=== PATIENT | female | born 1945 | race Caucasian/White ===

== ENCOUNTER → 2022-10-01 | Outpatient (CLI) | payer MEDICARE ==
[2022-10-01 11:46] LABS: Partial Thromboplastin Time 22.7 sec (22.0-30.0); Prothrombin Time 10.3 sec (9.0-12.0)
[2022-10-01 18:07] LABS: HCT 38.9 % (37.2-46.3); HGB 12.1 g/dL (12.0-15.0); MCH 30.5 pg (27.0-32.0); MCHC 31.1 g/dL (32.0-37.0); Mean Platelet Volume 10.5 fL (9.5-12.2); NRBC Per 100 WBC 0 /100 WBCS (0.0-0.0); Platelet Count 226 X 10*3/uL (140-440); RBC 3.97 X 10*6/uL (4.10-5.20); RDW 12.8 % (11.5-14.5); WBC 6.17 X 10*3/uL (4.50-10.00)
[2022-10-01 18:10] LABS: Appearance,Urine Clear (Clear); Bilirubin,Urine Negative (Negative); Blood,Urine Negative (Negative); Color,Urine Yellow (Yellow); Ketones,Urine Negative (Negative); Nitrite,Urine Negative (Negative); Specific Gravity,Urine 1.009 (1.001-1.030); Urobilinogen,Urine 0.2 (0.2,1.0)
[2022-10-01 18:14] LABS: African American GFR (CKD) 81.3 (60.0-200.0); Albumin 4.6 g/dL (3.8-4.9); Albumin/Globulin Ratio 2.3 (1.60-3.17); Anion Gap 10.3 mmol/L (10.00-18.00); BUN/Creat Ratio 17.5 Ratio (12.00-20.00); Carbon Dioxide 28.7 mmol/L (20.0-27.5); Non-African American GFR(CKD) 70.1 (60.0-200.0); Potassium 4.4 mmol/L (3.5-5.5); Total Bilirubin 0.4 mg/dL (0.30-1.20); Total Protein 6.6 g/dL (6.2-8.2)
[2022-10-01 18:24] LABS: Bacteria,Urine None Seen /HPF (None Seen)
== END | disposition home or self-care (01) ==
LOC: LABPAT 10:10
PROVIDERS: ATTEND Orthopaedic Surgery
DX: Z01.812 Encounter for preprocedural laboratory examination (principal); M16.12 Unilateral primary osteoarthritis, left hip
CPT/HCPCS: 36415; 80053; 81001; 85027; 85610; 85730; 87070

== ENCOUNTER 2022-10-06 13:35 | Day surgery (SDC) | payer MEDICARE ==
[~2022-10-06 13:35] MED LIST: ACETAMINOPHEN TAB 500 MG TAB PO PRN; DEXAMETHASONE SOD PHOSPHATE 4 MG/ML 1 ML VIAL IV ONE; GABAPENTIN 300 MG CAP PO PRN; HYDROmorphone 0.5 MG/0.5 ML SYRINGE IVP PRN; LIDOCAINE 1% (10MG/ML) FOR IV START INTRADERMA PRN; MELOXICAM 7.5 MG TAB PO PRN; MIDAZOLAM 2 MG/2 ML VIAL IV PRN; ONDANSETRON 4 MG/2 ML VIAL IVP ONE; TRANEXAMIC ACID IN NACL,ISO-OS 1,000 MG in SALINE 1 100ML.BAG IVPB PRN
[2022-10-06] MEDS: LACTATED RINGERS 1,000 ML IV SCH (14:07)
[2022-10-06] MEDS ORDERED: MIDAZOLAM 2 MG/2 ML VIAL IVP ONE (14:28)
--- NOTE | 2022-10-06 14:37 | P.ANPRN ---
Procedure Note - Anesthesia - Nerve Block Performed Left Manny Single Time Out Performed: Yes Date of Procedure: 10/06/22 Procedure Start Time: 14:28 Procedure Stop Time: 12:35 Location of Patient: PreOp Indication: Requested by Surgeon Specifically requested for management of pain by DrFabienne: Arnodl Saenz Sedation Type: Sedate with meaningful contact maintained Preparation: Sterile Prep Position: Supine Needle Types: Pajunk Needle Gauge: 21 Ultrasound used to visualize needle placement: Yes Ultrasound used to observe medication spread: Yes Injectate: 0.5% Ropivacaine (see comment for volume) (25 ml +4 mg Dexamethasone) Blood Aspirated: No Pain Paresthesia on Injection Noted: No Resistance on Injection: Normal Image Stored and Saved: Yes Events: Uneventful and Well Tolerated
[2022-10-06] MEDS ORDERED: NALOXONE 0.4 MG/ML 1 ML VIAL IV PRN (15:30)
[2022-10-06] MEDS ORDERED: MAGNESIUM HYDROXIDE 2,400 MG/10 ML CUP PO PRN (15:30)
[2022-10-06] MEDS ORDERED: HYDROmorphone 0.5 MG/0.5 ML SYRINGE IVP PRN ×3 (15:30)
[2022-10-06] MEDS ORDERED: ONDANSETRON 4 MG/2 ML VIAL IVP PRN (15:30)
[2022-10-06] MEDS ORDERED: HYDROcodone/APAP 7.5-325MG 1 EACH TAB PO PRN (15:32)
[2022-10-06] MEDS ORDERED: DEXAMETHASONE SOD PHOSPHATE 4 MG/ML 1 ML VIAL ONE (15:56)
[2022-10-06] MEDS ORDERED: ROPIVACAINE 5 MG/ML 30 ML VIAL ONE (15:56)
[2022-10-06] MEDS ORDERED: TRANEXAMIC ACID IN NACL,ISO-OS 1,000 MG/100 ML BAG ONE (15:56)
[2022-10-06] MEDS ORDERED: MIDAZOLAM 2 MG/2 ML VIAL ONE (15:56)
[2022-10-06] MEDS ORDERED: PHENYLEPHRINE-0.9% NACL SYG 1,000 MCG/10 ML SYRINGE ONE (15:56)
[2022-10-06] MEDS ORDERED: ceFAZolin 1,000 MG in SODIUM CHLORIDE 0.9% 1,000 ML IRRIGATION ONE (15:56)
[2022-10-06] MEDS ORDERED: PROPOFOL 10 MG/ML 20 ML VIAL IV ONE (15:56)
[2022-10-06] MEDS ORDERED: ROPIVACAINE 5 MG/ML 30 ML VIAL MISCELLANE ONE (16:21)
--- NOTE | 2022-10-06 16:59 | P.OP ---
Date of Procedure: 10/06/22 Preoperative Diagnosis: Severe osteoarthritis left hip Postoperative Diagnosis: Severe osteoarthritis left hip Procedure(s) Performed: Left total hip arthroplasty with a direct anterior approach Implants: [employer] Polarstem standard size 3 [employer] R3, 3 hole hemispherical acetabular shell, 52 mm [employer] Reflection 6.5 mm cancellus screw, 20 mm, 25 mm [employer] R3, XLPE 20 acetabular liner [employer] Oxinium femoral head 36 m, -3 All components were press-fit. The articulation is Oxinium on polyethylene. Anesthesia: spinal Surgeon: Arnold Saenz Doctor Of Dental Surgery #1: Katelin Richardson Estimated Blood Loss (ml): 150 Pathology: other (Femoral head) Condition: stable Disposition: PACU Indications for Procedure: After failure of conservative treatment we discussed the surgical and nonsurg ical treatment options at length. Patient wishes to proceed with a total hip arthroplasty with a direct anterior approach. Complications specific to this procedure were discussed at length, including but not limited to infection, leg length discrepancy, dislocation, nerve injury, and fracture. Covid-19 was also discussed at length with the patient, and they are aware of the current policies and procedures. The patient was given the option of delaying surgery, but they elect to proceed knowing these risks. Patient is aware of all these complications and informed consent was obtained Operative Findings: The operative findings are consistent with severe osteoarthritis of the left hip Description of Procedure: The patient was seen and evaluated in the preoperative area and the consent was reviewed. The operative site was marked with a skin marker. The patient verified the procedure and operative site. A DAVID block was placed by anesthesia in the preoperative area. The patient was then brought to the operating room and given preoperative antibiotics intravenously. 1 g of Tranexamic acid was also given intravenously. A spinal anesthetic was administered by the anesthesia department. The patient was then placed on the [place] table with the bony prominences well-padded. The hip area was then prepped with a ChloraPrep solution and draped in the usual sterile fashion. A universal timeout was then performed, which confirmed the patient's name, surgical site, ALLERGIES, and procedure being performed on the consent. Next the incision site was located at 1 cm distal and 4 cm lateral to the anterior superior iliac spine. The skin and subcutaneous tissues were sharply incised. Incision was carefully dissected down to the fascia overlying the tensor fascia mellisa muscle. This fascia was then incised in line with the muscle fibers. Care was taken to stay laterally in order to avoid injuring the lateral femoral c utaneous nerve. Next, using blunt finger dissection, the tensor fascia mellisa muscle was dissected off its investing fascia. The muscle was then carefully retracted laterally with a cobra retractor over the lateral neck of the femur. Next, the circumflex vessels were identified and cauterized using the Aquamantis device. The anterior hip capsule was then exposed. The capsule was then opened and an inverted T fashion. The retractors were then placed intracapsularly. The retractors were maintained intracapsular throughout the procedure. The proximal femur was then visualized. Fluoroscopic x-rays were then taken in order to evaluate the preoperative leg lengths. A small amount of traction was placed on the leg. The femoral neck was then osteotomized at the appropriate level above the lesser trochanter. A small wedge of bone was then removed from the remaining femoral head. Next, using a corkscrew the femoral head was removed from the acetabulum. On gross visual inspection, the femoral head had complete loss of articular cartilage and multiple periarticular osteophytes. The femoral head was then measured. Attention was then turned to the acetabulum. The acetabulum was exposed and any remaining labrum was excised. Sequential reaming of the acetabulum was performed using fluoroscopic guidance until there was a good bed of bleeding cancellus bone. When the appropriate size was reached, a trial was then placed. The position and fit of the trial was checked with fluoroscopy. The trial was then removed. Then, using fluoroscopic guidance, the final implant was impacted at 20 of anteversion and 40 of abduction, and fully seated in the acetabulum. 2 screws were then placed in the acetabulum. Again fluoroscopy was used to check position of the screws. Next, the liner was then impacted, with a 20 elevated liner located in the anterior superior quadrant. Component locking was confirmed. Attention was then directed to the femur. With the aid of the [place] table, the femur was externally rotated to approximately 130, extended, and adducted under the opposite leg. A side hook was then placed under the proximal femur, and the side hook elevator was used to elevate the proximal femur while releasing the capsule. Retractors were then placed. A capsular release was performed, as well as a release of the conjoined tendon, which afforded excellent visu alization of the proximal femur. Next, a box osteotome was used to lateralize the proximal femur. A irradiated fuel handler was then used to locate the femoral canal. Sequential broaching was then performed with appropriate size which afforded excellent fixation in the proximal femur. A trial was then placed with appropriate head and neck, and the hip was gently reduced with the aid of the [place] table. Fluoroscopy was then used to check position of the components, as well as to evaluate the leg lengths and offset. The leg lengths and offset were measured as closely as possible to ensure stability of the hip. The hip was then gently dislocated and the trials were then removed. Final implants were then impacted and the hip was again reduced. Final fluoroscopic x-rays confirmed that the components were in anatomic position. The leg lengths and offset were measured and were found to coincide with the trial measurements. The hip was also taken through range of motion, and found to be stable. The hip was then copiously irrigated with antibiotic solution with pulsatile lavage. The hip was then irrigated with Irrisept solution. The soft tissues were then injected with a ropivacaine solution. A second dose of 1 g of Tranexamic acid was also given intravenously. The fascia was then closed with 2-0 strata fix suture. The subcutaneous tissue was closed with 3-0 Vicryl. The subcuticular tissue was closed with 3-0 strata fix suture. The skin was then closed with Exofin skin glue. After the glue and dried, and Optifoam silver impregnated dressing was applied. The patient was then transferred to the recovery room in stable condition. The certified anesthesiologist assistant EMELY Gavin was required due to the complexity of surgery, and the need for skilled surgical supply assistant for positioning, draping, exposure, retraction, and closure of the wound.
--- NOTE | 2022-10-06 17:29 | FL ---
Intraoperative/procedural fluoroscopic services were provided. Total fluoroscopy time is 42 seconds w ith a total of 3 submitted images to PACS. Please see the operative/procedural note for further detai ls.
--- NOTE | 2022-10-06 17:45 | XR ---
EXAMINATION TYPE: XR Hip Limited LT DATE OF EXAM: 10/06/2022 5:40 PM INDICATION: Patient age:Female; 77 years old; Reason for study: Status post hip surgery, assess surgical alignment; COMPARISON: None. TECHNIQUE: The left hip was examined in the frontal FINDINGS: Post arthroplasty changes, hardware is intact, alignment is appropriate. No evidence of fra cture. Postoperative changes soft tissue. No evidence of any acute osseous pathology or joint disloca tion. IMPRESSION: Total hip arthroplasty with hardware intact and in appropriate alignment. No acute fracture.
[2022-10-06] MEDS: ASPIRIN 325 MG TAB PO SCH (20:23)
[2022-10-06] MEDS: SODIUM CHLORIDE 0.9% 1,000 ML IV SCH (20:26)
[2022-10-06] MEDS ORDERED: SENNOSIDES-DOCUSATE SODIUM 1 EACH TAB PO SCH (21:00)
[2022-10-06] MEDS: HYDROcodone/APAP 7.5-325MG 1 EACH TAB PO PRN (22:24)
[2022-10-07] MEDS: SODIUM CHLORIDE 0.9% 1,000 ML IV SCH (01:49)
[2022-10-07] MEDS: LACTATED RINGERS 1,000 ML IV SCH (01:49)
[2022-10-07] MEDS: HYDROcodone/APAP 7.5-325MG 1 EACH TAB PO PRN (06:11)
[2022-10-07] MEDS: ASPIRIN 325 MG TAB PO SCH (07:41)
--- NOTE | 2022-10-07 07:42 | P.DS ---
Providers Expected date of discharge: 10/07/22 Attending physician: Arnold Saenz Consults: 10/06/22 15:30 Consult Physician Routine Consulting Provider: Kwabena Whiting Consult Reason/Comments: medical management Do you want consulting provider notified?: Yes Primary care physician: Brooks Crouch - Discharge Diagnosis(es) (1) Primary localized osteoarthritis of left hip Current Visit: Yes Status: Acute (2) Status post total hip replacement, left Current Visit: Yes Status: Acute Hospital Course: This is a 77-year-old female with known history of degenerative arthritis of the left hip. The patient presents for evaluation. After discussion and consideration patient elects to proceed with total hip arthroplasty with direct anterior approach. The patient is seen preoperatively by primary care physician and cleared for surgery. Patient is admitted to [facility] on 10/06/2022 for total hip arthroplasty with direct anterior approach. The procedure is performed without complication or sequelae. The patient is doing well postoperatively. Labs and vital signs are stable on day of discharge. On day of discharge patient's hip incision is healing well. There is minimal erythema. There is no drainage noted at this time. There is minimal soft tissue swelling to the hip and thigh. Patient has full foot and ankle motion without difficulty or pain. Neurovascular status to the lower extremity is intact. Patient is discharged to home in good condition. Please see med rec for accurate list of home medications. Patient Condition at Discharge: Good Plan - Discharge Summary Discharge Rx Participant: Yes New Discharge Prescriptions: New Sennosides [Senokot] 2 tab PO DAILY PRN #60 tablet PRN Reason: Constipation Aspirin 325 mg PO BID #60 tab HYDROcodone/APAP 7.5-325MG [[place] 7.5-325] 1 - 2 tab PO Q6H PRN #32 tab PRN Reason: Pain No Action Ibuprofen [Motrin] 800 mg PO Q6H PRN PRN Reason: Pain Metoprolol Succinate (ER) [Toprol Xl] 25 mg PO HS Metoprolol Succinate (ER) [Toprol Xl] 50 mg PO QAM Atorvastatin [Lipitor] 20 mg PO 1200 Aspirin 81 mg PO DAILY Discharge Medication List Aspirin 81 mg PO DAILY 10/02/22 [History] Atorvastatin [Lipitor] 20 mg PO 1200 10/02/22 [History] Ibuprofen [Motrin] 800 mg PO Q6H PRN 10/02/22 [History] Metoprolol Succinate (ER) [Toprol Xl] 25 mg PO HS 10/02/22 [History] Metoprolol Succinate (ER) [Toprol Xl] 50 mg PO QAM 10/02/22 [History] Aspirin 325 mg PO BID #60 tab 10/06/22 [Rx] HYDROcodone/APAP 7.5-325MG [[place] 7.5-325] 1 - 2 tab PO Q6H PRN #32 tab 10/06/22 [Rx] Sennosides [Senokot] 2 tab PO DAILY PRN #60 tablet 10/06/22 [Rx] Follow up Appointment(s)/Referral(s): Arnold Saenz DO [Doctor of Osteopathic Medicine] - 2 Weeks Activity/Diet/Wound Care/Special Instructions: Weightbearing as tolerated with walker. Leave dressing intact. Dressing may be removed by home care nurse or by patient in 7 days. Then change dressing twice daily until follow up. May shower with initial dressing intact and after removal. If dressing become saturated, please remove. Please take aspirin 325mg twice daily for 30 days to prevent blood clots. Recommend use of compression stockings daily until follow up to help prevent swelling and blood clots. May remove at night before sleeping. Please follow-up with [facility] in 2 weeks and call with any questions or concerns, . Discharge Disposition: HOME WITH HOME HEALTH SERVICES
[2022-10-07 08:03] VITALS: BP 105/64; PULSE 76; RESP 17; TEMP 98.4
[2022-10-07 09:41] LABS: Basophils # (A) 0.01 X 10*3/uL (0.00-0.10); Basophils % (A) 0.1 %; Eosinophils # (A) 0 X 10*3/uL (0.04-0.35); Eosinophils % (A) 0 %; HCT 32.6 % (37.2-46.3); HGB 10.4 g/dL (12.0-15.0); Immature Grans, Automated 0.3 %; Lymphocytes % (A) 7.4 %; MCH 30.7 pg (27.0-32.0); MCHC 31.9 g/dL (32.0-37.0); MCV 96.2 fL (80.0-97.0); Mean Platelet Volume 10.3 fL (9.5-12.2); Monocytes # (A) 0.73 X 10*3/uL (0.20-1.00); Monocytes % (A) 6.7 %; NRBC Per 100 WBC 0 /100 WBCS (0.0-0.0); Neutrophils # (A) 9.26 X 10*3/uL (1.80-7.70); Neutrophils % (A) 85.5 %; Platelet Count 198 X 10*3/uL (140-440); RBC 3.39 X 10*6/uL (4.10-5.20); RDW 12.6 % (11.5-14.5); WBC 10.83 X 10*3/uL (4.50-10.00)
[2022-10-07] MEDS ORDERED: METOPROLOL SUCCINATE (ER) 50 MG TAB.ER.24H PO SCH (11:15)
[2022-10-07] MEDS ORDERED: ATORVASTATIN 20 MG TAB PO SCH (12:00)
--- NOTE | 2022-10-07 16:55 | P.CONS ---
History of Present Illness - Reason for Consult Consult date: 10/07/22 Medical management Requesting physician: Arnold Saenz - Chief Complaint Hip surgery - History of Present Illness This is a pleasant 77-year-old patient who follows with Dr. Brooks Crouch. Chronic stable medical conditions include atrial fibrillation, hyperlipidemia, hypertension, osteoarthritis. Patient also has a permanent pacemaker. Does take beta blockers. Normally blood pressure runs low. Patient does not take anticoagulants. Patient underwent left total hip arthroplasty yesterday. This morning feeling good. Pain control. No nausea vomiting. Did tolerate breakfast. Walk a bit. Lopressor is being resumed. After discussing with the patient. Review of systems: GEN.: None EYES: None HEENT: None NECK: None RESPIRATORY: None CARDIOVASCULAR: None GASTROINTESTINAL: None GENITOURINARY: None MUSCULOSKELETAL: [Joint pains LYMPHATICS: None HEMATOLOGICAL: None PSYCHIATRY: None NEUROLOGICAL: None Past medical history to include: Atrial fibrillation, hyperlipidemia, hypertension, prostatitis, skin cancer, pacemaker, Social history: . Lives alone. No smoking. Alcohol occasionally. Physical examination: VITAL SIGNS: 98.4, 76, 17, 105/64, 95% room air GENERAL: BMI 22.3, sitting, chair, awake, comfortable. EYES: Pupils equal. Conjunctiva normal. HEENT: External appearance of nose and ears normal, oral cavity grossly normal. NECK: JVD not raised; masses not palpable. HEART: First and second heart sounds are normal; no edema. LUNGS: Respiratory rate normal; clear to auscultation. ABDOMEN: Soft, nontender, liver spleen not palpable, no masses palpable. PSYCH: Alert and oriented x3; mood and affect normal. MUSCULOSKELETAL:No Clubbing/cyanosis;muscles-grossly intact. OA. NEUROLOGICAL: Cranial nerves grossly intact; no facial asymmetry, power and sensation grossly intact. LYMPHATICS: No lymph nodes palpable in the axilla and neck INVESTIGATIONS, reviewed in the clinical context: White count 10.8 hemoglobin 10.4 platelets 198 Previous labs: Hemoglobin 12.1 on 10/01/2022 potassium 4.4 creatinine 0.8 Assessment plan: -Left total hip arthroplasty. Aspirin for DVT prophylaxis. -Persistent atrial fibrillation Continue Toprol-XL. Patient blood pressure on the lower side. 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 Questions answered. Patient to follow-up with her family doctor upon discharge. Patient to continue taking her aspirin after the current prescribed dose of aspirin is completed for DVT prophylaxis. Discussed the patient. Thank you Past Medical History Past Medical History: Atrial Fibrillation, Cancer, Hyperlipidemia, Hypertension, Osteoarthritis (OA) Additional Past Medical History / Comment(s): hx. skin cancer History of Any Multi-Drug Resistant Organisms: None Reported Past Surgical History: Appendectomy, Pacemaker Additional Past Surgical History / Comment(s): D & C's, cataracts removed Past Anesthesia/Blood Transfusion Reactions: No Reported Reaction Type of Cardiac Device: Permanent Pacemaker Device Placement Date:: April 06, 2022 Past Psychological History: No Psychological Hx Reported Smoking Status: Never smoker Past Alcohol Use History: Occasional Past Drug Use History: None Reported - Past Family History Mother Family Medical History: No Reported History Medications and Allergies Home Medications Medication Instructions Recorded Confirmed Type Aspirin 81 mg PO DAILY 10/02/22 10/06/22 History Atorvastatin [Lipitor] 20 mg PO 1200 10/02/22 10/02/22 History Ibuprofen [Motrin] 800 mg PO Q6H PRN 10/02/22 10/02/22 History Metoprolol Succinate (ER) [Toprol 25 mg PO HS 10/02/22 10/06/22 History XL] Metoprolol Succinate (ER) [Toprol 50 mg PO QAM 10/02/22 10/02/22 History XL] Aspirin 325 mg PO BID #60 tab 10/06/22 Rx HYDROcodone/APAP 7.5-325MG [[place] 1 - 2 tab PO Q6H PRN #32 tab 10/06/22 Rx 7.5-325] Sennosides [Senokot] 2 tab PO DAILY PRN #60 tablet 10/06/22 Rx Allergies Allergy/AdvReac Type Severity Reaction Status Date / Time doxycycline Allergy Anaphylaxis Verified 10/06/22 13:50 Sulfa (Sulfonamide Allergy Rash/Hives Verified 10/06/22 13:50 Antibiotics) Physical Exam Vitals: Vital Signs Temp Pulse Resp BP Pulse Ox 10/07/22 07:41 98.4 F 76 17 105/64 95 10/07/22 02:24 97.7 F 71 15 95/58 94 L 10/06/22 21:09 75 99/64 91 L 10/06/22 20:54 78 111/73 91 L 10/06/22 20:39 77 115/74 92 L 10/06/22 20:24 71 118/76 93 L 10/06/22 20:09 86 112/74 98 10/06/22 19:54 80 105/65 90 L 10/06/22 19:39 85 113/71 88 L 10/06/22 19:24 80 107/70 90 L 10/06/22 19:10 79 118/67 86 L 10/06/22 18:24 97.5 F L 76 16 133/76 98 10/06/22 18:02 69 16 113/63 92 L 10/06/22 17:47 74 16 109/55 96 10/06/22 17:32 77 16 108/55 94 L 10/06/22 17:17 97.2 F L 72 16 107/53 96 10/06/22 13:51 97.3 F L 95 16 154/85 98 Intake and Output 10/06/22 10/07/22 10/07/22 22:59 06:59 14:59 Intake Total 701 570 Output Total 150 Balance 551 570 Intake: IV 701 Intake, IV Titration 570 Amount Sodium Chloride 0.9% 1, 520 000 ml @ 65 mls/hr IV . [id number] [facility] Rx#:[id number] ceFAZolin 2 gm In Sodium 50 Chloride 0.9% 50 ml @ 100 mls/hr IVPB Q8HR [facility] Rx# :[id number] Output: Estimated Blood Loss 150 Other: # Voids 2 Weight 64.7 kg Results CBC & Chem 7: 10/07/22 06:01 Labs: Abnormal Lab Results - Last 24 Hours (Table) 10/07/22 Range/Units 06:01 WBC 10.83 H (4.50-10.00) X 10*3/uL RBC 3.39 L (4.10-5.20) X 10*6/uL Hgb 10.4 L (12.0-15.0) g/dL Hct 32.6 L (37.2-46.3) % MCHC 31.9 L (32.0-37.0) g/dL Neutrophils # 9.26 H (1.80-7.70) X 10*3/uL Lymphocytes # 0.80 L (0.90-5.00) X 10*3/uL Eosinophils # 0 L (0.04-0.35) X 10*3/uL
[2022-10-07] MEDS ORDERED: METOPROLOL SUCCINATE (ER) 25 MG TAB.ER.24H PO SCH (21:00)
== END 2022-10-07 13:03 | disposition home health service (06) ==
LOC: OR 13:35 → 4SSUR 17:17 → OR 10-07 13:03
PROVIDERS: ATTEND Orthopaedic Surgery
DX: M16.12 Unilateral primary osteoarthritis, left hip (principal); G89.18 Other acute postprocedural pain; I48.91 Unspecified atrial fibrillation; E78.5 Hyperlipidemia, unspecified; F10.90 Alcohol use, unspecified, uncomplicated; I10 Essential (primary) hypertension; Z85.828 Personal history of other malignant neoplasm of skin; Z90.49 Acquired absence of other specified parts of digestive tract; Z95.0 Presence of cardiac pacemaker; Z98.41 Cataract extraction status, right eye; Z98.42 Cataract extraction status, left eye; Z79.82 Long term (current) use of aspirin; Z79.1 Long term (current) use of non-steroidal anti-inflammatories (NSAID); Z79.2 Long term (current) use of antibiotics
CPT/HCPCS: 27130; 97161; 97166; 64447; 86900; 86901; 85025; 86850; 88300; 73501; C1776; J2250; J1100; J0690 ×3; J2405; J2795; J2370; J2704